=== PATIENT | female | born 1975 | race Caucasian/White ===

== ENCOUNTER → 2018-09-15 | Outpatient (CLI) | payer OTHER ==
[~2018-09-15] MED LIST: ALB17R INH; AUG875 PO; AZIT500T44 PO; BECL8.7A2 PO; BISA-71 PO; CA C1TAB6 PO; CEF300 PO; DOXY-181 PO; HYDR-2952 PO; IBU800 PO; IPRA3AMP10 NEB; MULT1CAP41 PO; NEBI5TAB PO; PER PO; PRE20 PO; PRED-1 PO; PREN-67 PO; PSEU-79 PO; VITA-131 PO
--- NOTE | 2018-09-24 15:19 | RADIOLOGY IMAGING REPORT ---
FACILITY: [facility] [place] PATIENT NAME: MARY DICKSON : [id number] MR: [id number] V: [id number] EXAM DATE: ORDERING PHYSICIAN: MARCO ANTONIO ONEILL TECHNOLOGIST: Little Polanco PROCEDURE:BILATERAL DIGITAL SCREENING MAMMOGRAM WITH CAD ASSISTED INTERPRETATION & 3D TOMOSYNTHESIS COMPARISON:[facility] INDICATIONS:screening FINDINGS: The breasts are heterogeneously dense. Benign appearing asymmetries are scattered bilaterally, essentially unchanged. DIAGNOSTIC CATEGORY 1--NEGATIVE. RECOMMENDATIONS: ROUTINE MAMMOGRAM AND CLINICAL EVALUATION IN 1 YR. IMPRESSION: BIRADS 1: Negative. Dictated by: Leonides Chadwick M.D. on 09/16/2018 at 14:35 Transcribed by: FANY on 09/16/2018 at 14:45 Approved by: Rogelio Santos on 09/24/2018 at 15:18 [facility]
== END ==
LOC: MAMO 01:12
PROVIDERS: ATTEND Nurse Practitioner Family
DX: Z12.31 Encounter for screening mammogram for malignant neoplasm of breast (principal)
CPT/HCPCS: 77063; 77067